=== PATIENT | female | born 1955 | race Caucasian/White ===

== ENCOUNTER 2023-08-03 10:00 | Day surgery (SDC) | payer OTHER ==
--- NOTE | 2023-07-30 08:24 | RAD REPORT ---
EXAM DESCRIPTION: RAD - Chest Pa And Lat (2 Views) - 07/30/2023 8:18 am CLINICAL HISTORY: PRE OP LEFT HEART CATH Chest pain. COMPARISON: No comparisons TECHNIQUE: PA and lateral views of the chest were obtained. FINDINGS: The lungs are hyperexpanded compatible with COPD. The heart is upper limit of normal in si ze. No fracture or aggressive bony process. IMPRESSION: COPD without acute process identified. The USPSTF recommends annual screening for lung cancer with low-dose CT (LDCT) in adults aged 50 to 8 0 years who have a 20 pack-year smoking history and currently smoke or have quit within the past 15 y ears.
[2023-07-30 08:31] LABS: Absolute Lymphocytes (CBC) 1.2 K/uL (0.7-4.9); Basophils % 0.3 % (0-1.3); Eosinophils % 0.5 % (0-4.4); Hematocrit 43.5 % (36.0-45.0); Hemoglobin 14.9 g/dL (12.0-15.0); Lymphocytes % 19.1 % (15.3-44.8); MCV 92.9 fL (80-100); MPV 7.4 fL (7.6-11.3); Platelets 277 thou/uL (152-406); RBC Red Blood Cell Count 4.68 M/uL (3.86-4.86)
[2023-07-30 08:38] LABS: Anion Gap 7.1 mEq/L (5.0-15.0); Potassium 4.1 mEq/L (3.5-5.1)
[2023-07-30 08:39] LABS: Protime INR 1.02
[2023-08-03] MEDS: NA CHLORIDE 0.9% 500 ML ONE (10:15)
[2023-08-03] MEDS ORDERED: VERAPAMIL HCL 10 MG/4 ML VIAL IV ONE (12:45)
[2023-08-03] MEDS ORDERED: HEPA 1000U/500MLS 2,000 UNIT/1,000 ML BAG IV ONE (12:45)
[2023-08-03] MEDS ORDERED: LIDOCAINE 1% 20 ML MDV ONE (12:45)
[2023-08-03] MEDS ORDERED: HEPARIN 5000 UNIT/ML 1 ML VIAL ONE (12:46)
[2023-08-03] MEDS ORDERED: HEPARIN 10,000 UNIT/10 ML VIAL IV ONE (12:46)
[2023-08-03] MEDS ORDERED: MIDAZOLAM HCL 2 MG/2 ML INJ ONE (12:47)
[2023-08-03] MEDS ORDERED: FENTANYL CITR 100 MCG/2 ML ONE (12:47)
--- NOTE | 2023-08-03 14:09 | OP ---
Date of Procedure: 08/03/2023 Surgeon: DIANA GARAY Procedure Performed: Selective coronary angiogram with left heart catheterization. Indication: Chest pain, abnormal stress test. Access: Right radial artery 6-Sudanese, closed with TR band. Complications: None. Bleeding: Less than 50 mL. Anesthesia: Total sedation time was 45 minutes. Used fentanyl and Versed. Description Of Procedure: After risks, benefits, alternatives were explained, the patient agreed to procedure and signed informed consent. The patient was brought into the cardiac catheterization [facility], prepped and draped in the usual sterile fashion. Then, I accessed right radial artery using pediatric micropuncture kit, placed a 6-Sudanese Slender sheath and took 5-Sudanese [place] 4 catheter into aortic root, over J-wire, engaged left main and then right coronary artery, took standard views and then catheter was pushed over the wire into the LV, measured LVEDP. Pullback did not record any grad ient, then removed the catheter and the sheath, placed TR band with good hemostasis. Findings: 1.Left main is short and normal. 2.LAD: Mild luminal irregularities, but no significant stenosis. Normal diagonal branches. 3.Left circumflex: Proximal 20% with myocardial bridge. OM branch is normal. Rest of the left cir cumflex is normal. 4.RCA: It is dominant circulation with proximal 20% stenosis. Rest of RCA is normal. 5.LVEDP is borderline between 10-12 mmHg. Conclusion: 1.Mild nonobstructive coronary artery disease. 2.Borderline elevated LVEDP. Recommendation: Medical management. SR/MODL Voice ID: [id number] Report ID: [id number]
[2023-08-03] MEDS: NA CHLORIDE 0.9% 0 ML ONE (15:45)
[2023-08-03 17:39] VITALS: BP 107/68; TEMP 96; O2SAT 96
== END 2023-08-03 15:55 | disposition home or self-care (01) ==
LOC: CCL 10:00
PROVIDERS: ATTEND Internal Medicine Interventional Cardiology
DX: I25.10 Atherosclerotic heart disease of native coronary artery without angina pectoris (principal); Q24.5 Malformation of coronary vessels; I73.9 Peripheral vascular disease, unspecified; I10 Essential (primary) hypertension; E78.5 Hyperlipidemia, unspecified; E11.9 Type 2 diabetes mellitus without complications; Z87.891 Personal history of nicotine dependence; Z79.84 Long term (current) use of oral hypoglycemic drugs; Z79.899 Other long term (current) drug therapy; Z88.1 Allergy status to other antibiotic agents; Z88.5 Allergy status to narcotic agent; Z82.49 Family history of ischemic heart disease and other diseases of the circulatory system
CPT/HCPCS: 93005; 85025; 80048; 36415; 85610; 82947; 85730; 71046; 93458; 76937; C1893; Q9966; J1644; J2001; J2250; J3010; J7040; 99152; 99153; J7030

== ENCOUNTER → 2023-08-03 | Emergency (ER) | payer OTHER ==
--- OUTSIDE RECORDS SUMMARY | 2023-08-03 16:16 | XMS REPORT | Continuity of Care Document ---
Author Name Unknown Address [address] [facility] [address] [place] [address] [facility] thconnect Address [address] [facility]. [address] [place] [address] Care Team Providers Care Review Coordinator Name Role Phone Pcp, Patient Does Not Have A Primary Care Physic timothy Pedro Mac Attending Clinician Unavailable [email or web address] Attending Clinician Roseanne Cid MD Attending Clinician + [phone] ROSEANNE OKEEFE Attending Clinician Andrew voss Doctor Unassigned, Mazie Attending Clinician Amber Garber MD Attending Clinician [phone] AMBER IRVING Attending Clinician Unavail able [email or web address]_S Admitting Clinician ROSEANNE Cid Admitting Clinician Roseanne Alvarado MD Admitting Clinician + [phone] Payers Payer Name Policy Type Policy Number Effective Date Expirati on Date Source [place]IC[place]: MePlease [id number] 2022 00:00:00 AETELLE (MEDICARE SUPPLEMENT) [id number] STANDARD LIFE & ACCIDENT C1 [id number] [facility] C1 [id number] 2020 00:00:00 [facility] COMMERCIAL NON-CONTRACT GENERIC [id number] 2017 00:00:00 Problems Condition Name Condition Details Condition Category Status Onset Date Resolution Date Last Treatment Date Treating Clinician Comments Source Hyperlipid emia Hyperlipid emia Disease Active 2014-05 00:00: 00 [facility] History of cigarette smoking History of cigarette smoking Disease Active 2014-05 00:00: 00 [facility] [id number] Diverticul osis of large intestine without hemorrhage Problem Active [facility] Mixed hyperlipid emia Hyperlipid emia, mixed Problem Active [facility] Type II diabetes mellitus well controlled Diabetes type 2, controlled Problem Active [facility] [id number] Peripheral polyneurop athy Problem Active [facility] [id number] Type 2 diabetes mellitus with other diabetic kidney complicati on Problem Active [facility] Ex-smoker Former smoker Problem Active [facility] Fatty liver Fatty liver Problem Active [facility] Essential hypertensi on Benign essential HTN Problem Active [facility] Allergic rhinitis Allergic rhinitis Problem Active [facility] Allergies, Adverse Reactions, Alerts Allergy Name Allergy Type Status Severity Reaction(s) Onset Date Inactive Date Treating Clinician Comments Source Ciproflo xacin Propensi ty to adverse reaction s Active Diarrhea 2011-05 00:00: 00 [facility] CIPROFLO XACIN DRUG INGREDI Active Diarrhea 2011-05 00:00: 00 [facility] MORPHINE DRUG INGREDI Active Anxiety 2011-05 00:00: 00 [facility] Morphine Propensi ty to adverse reaction s Active Anxiety 2011-0514 00:00: 00 [facility] morphine morphine Active Unknown [facility] 9041 Drug allergy Active Unknown [facility] Social History Social Habit Start Date Stop Date Quantity Comments Source Sex Assigned At [facility] Exposure to SARS-CoV-2 (event) 2022-08-17 00:00:00 2022-08-27 14:04:00 Not sure [facility] Tobacco use and exposure 2022-08-27 00:00:00 2022-08-27 00:00:00 Smokeless tobacco non-user [facility] Alcohol intake 2022-08-27 00:00:00 2022-08-27 00:00:00 0 /d [facility] Tobacco Comment 2022-08-27 00:00:00 2022-08-27 00:00:00 Patient smoking 8 years ago [facility] Cigarettes smoked current (pack per day) - Reported 2022-08-27 00:00:00 2022-08-27 00:00:00 [facility] Cigarette pack-years 2022-08-27 00:00:00 2022-08-27 00:00:00 [facility] History of tobacco use 2014-09-13 00:00:00 Cigarette Smoker [facility] Smoking Status Start Date Stop Date Source Former Smoker 2022-01-29 00:00:00 2022-01-29 00:00:00 [facility] Medications Ordered Medication Name Filled Medication Name Start Date Stop Date Current Medication? Ordering Clinician Indication Dosage Frequency Signature (SIG) Comments Components Source water for irrigation irrigation solution 09-02 18:23: 00 09-02 19:17 :01 No PRN, Starting on Wed09/02/22 at 1323, Until Wed09/02/22 at 1417, Routine, Intra-op [facility] simethicone (GAS RELIEF (SIMETHICON E)) 40 mg/0.6 mL drops 09-02 18:22: 00 09-02 19:17 :01 No PRN, Starting on Wed09/02/22 at 1322, Until Wed09/02/22 at 1417, Routine, Intra-op [facility] lactated ringers IV infusion 1,000 mL 09-02 17:45: 00 09-02 17:45 :00 No 1000mL at 42 mL/hr, 1,000 mL, IV Infusion, ONCE, 1 dose, On Wed09/02/22 at 1245, Routine, DSU Pre-op [facility] lactated ringers IV infusion 1,000 mL 09-02 17:45: 00 09-02 17:45 :00 No 1000mL at 42 mL/hr, 1,000 mL, IV Infusion, ONCE, 1 dose, On Wed09/02/22 at 1245, Routine, DSU Pre-op [facility] semaglutide 3 mg Tab 09-02 14:37: 39 Yes 1{tbl} Take 1 tablet by mouth in the morning. [facility] calcium carbonate (CALCIUM 600 ORAL) 09-02 14:37: 39 Yes 1200mg Take 1,200 mg by mouth in the morning. [facility] multivit-mi n/iron/foli c/lutein (CENTRUM SILVER WOMEN ORAL) 09-02 14:37: 39 Yes 1{tbl} Take [address] [facility] vitamin E mixed 400 unit Cap 09-02 14:37: 39 Yes 800mg Take 800 mg by mouth in the morning. [facility] cholecalcif mario, vitamin D3, (VITAMIN D3) 25 mcg (1,000 unit) tablet 09-02 14:37: 39 Yes 1000U Take 1 tablet by mouth in the morning. [facility] lisinopriL- hydrochloro thiazide 20-25 mg per tablet 09-02 14:37: 39 Yes 1{tbl} Take 1 tablet by mouth in the morning. [facility] pravastatin (PRAVACHOL) 40 mg tablet 09-02 14:37: 39 Yes 40mg Take 1 tablet by mouth at bedtime. [facility] lisinopril (PRINIVIL,Z ESTRIL) 20 mg tablet 09-02 14:37: 39 Yes 20mg Take 1 tablet by mouth in the morning. [facility] amLODIPine (NORVASC) 5 mg tablet 09-02 14:37: 39 Yes 5mg Take 1 tablet by mouth in the morning. [facility] metFORMIN 500 mg tablet 09-02 14:37: 39 Yes Take by mouth at bedtime. [facility] semaglutide 3 mg Tab 09-02 14:37: 39 Yes 1{tbl} Take 1 tablet by mouth in the morning. [facility] calcium carbonate (CALCIUM 600 ORAL) 09-02 14:37: 39 Yes 1200mg Take 1,200 mg by mouth in the morning. [facility] multivit-mi n/iron/foli c/lutein (CENTRUM SILVER WOMEN ORAL) 09-02 14:37: 39 Yes 1{tbl} Take [address] [facility] vitamin E mixed 400 unit Cap 09-02 14:37: 39 Yes 800mg Take 800 mg by mouth in the morning. [facility] cholecalcif mario, vitamin D3, (VITAMIN D3) 25 mcg (1,000 unit) tablet 09-02 14:37: 39 Yes 1000U Take 1 tablet by mouth in the morning. [facility] lisinopriL- hydrochloro thiazide 20-25 mg per tablet 09-02 14:37: 39 Yes 1{tbl} Take 1 tablet by mouth in the morning. [facility] pravastatin (PRAVACHOL) 40 mg tablet 09-02 14:37: 39 Yes 40mg Take 1 tablet by mouth at bedtime. [facility] lisinopril (PRINIVIL,Z ESTRIL) 20 mg tablet 09-02 14:37: 39 Yes 20mg Take 1 tablet by mouth in the morning. [facility] amLODIPine (NORVASC) 5 mg tablet 09-02 14:37: 39 Yes 5mg Take 1 tablet by mouth in the morning. [facility] metFORMIN 500 mg tablet 09-02 14:37: 39 Yes Take by mouth at bedtime. [facility] semaglutide 3 mg Tab 09-02 14:37: 39 Yes 1{tbl} Take 1 tablet by mouth in the morning. [facility] calcium carbonate (CALCIUM 600 ORAL) 09-02 14:37: 39 Yes 1200mg Take 1,200 mg by mouth in the morning. [facility] multivit-mi n/iron/foli c/lutein (CENTRUM SILVER WOMEN ORAL) 09-02 14:37: 39 Yes 1{tbl} Take [address] [facility] vitamin E mixed 400 unit Cap 09-02 14:37: 39 Yes 800mg Take 800 mg by mouth in the morning. [facility] cholecalcif mario, vitamin D3, (VITAMIN D3) 25 mcg (1,000 unit) tablet 09-02 14:37: 39 Yes 1000U Take 1 tablet by mouth in the morning. [facility] lisinopriL- hydrochloro thiazide 20-25 mg per tablet 09-02 14:37: 39 Yes 1{tbl} Take 1 tablet by mouth in the morning. [facility] pravastatin (PRAVACHOL) 40 mg tablet 09-02 14:37: 39 Yes 40mg Take 1 tablet by mouth at bedtime. [facility] lisinopril (PRINIVIL,Z ESTRIL) 20 mg tablet 09-02 14:37: 39 Yes 20mg Take 1 tablet by mouth in the morning. [facility] amLODIPine (NORVASC) 5 mg tablet 09-02 14:37: 39 Yes 5mg Take 1 tablet by mouth in the morning. [facility] metFORMIN 500 mg tablet 09-02 14:37: 39 Yes Take by mouth at bedtime. [facility] Kenalog (Triamcinol one) Kenalog (Triamcinol one) 07-01 00:00: 00 No 40mg [facility] Kenalog (Triamcinol one) Kenalog (Triamcinol one) 07-01 00:00: 00 No 40mg [facility] Kenalog (Triamcinol one) Kenalog (Triamcinol one) 07-01 00:00: 00 No 40mg [facility] pravastatin (PRAVACHOL) 40 mg tablet 2015-05 19:15: 43 Yes 40mg Take 40 mg by mouth at bedtime. [facility] lisinopril (PRINIVIL,Z ESTRIL) 20 mg tablet 2015-05 19:15: 43 Yes 20mg Take 20 mg by mouth daily. [facility] amLODIPine (NORVASC) 5 mg tablet 2015-05 19:15: 43 Yes 5mg Take 5 mg by mouth daily. [facility] pravastatin (PRAVACHOL) 40 mg tablet 2015-05 19:15: 43 Yes 40mg Take 40 mg by mouth at bedtime. [facility] lisinopril (PRINIVIL,Z ESTRIL) 20 mg tablet 2015-05 19:15: 43 Yes 20mg Take 20 mg by mouth daily. [facility] amLODIPine (NORVASC) 5 mg tablet 2015-05 19:15: 43 Yes 5mg Take 5 mg by mouth daily. [facility] ALPRAZolam (XANAX) 0.25 mg tablet 2015-05 00:00: [address] [facility] ALPRAZolam (XANAX) 0.25 mg tablet 2015-05 00:00: [address] [facility] ALPRAZolam (XANAX) 0.25 mg tablet 2015-05 00:00: [address] [facility] ALPRAZolam (XANAX) 0.25 mg tablet 2015-05 00:00: [address] [facility] ALPRAZolam (XANAX) 0.25 mg tablet 2016-1 0-05 00:00: 00 Yes [facility] estradiol (VIVELLE-DO T) 0.0375 mg/24 hr patch 06-18 00:00: 00 Yes [facility] estradiol (VIVELLE-DO T) 0.0375 mg/24 hr patch 06-18 00:00: 00 Yes [facility] estradiol (VIVELLE-DO T) 0.0375 mg/24 hr patch 06-18 00:00: 00 Yes [facility] estradiol (VIVELLE-DO T) 0.0375 mg/24 hr patch 06-18 00:00: 00 Yes [facility] estradiol (VIVELLE-DO T) 0.0375 mg/24 hr patch 06-18 00:00: 00 Yes [facility] fluticasone 50 mcg/actuati on nasal spray 2014-05 00:00: 00 Yes [id number] 2{spray } Use 2 Sprays in each nostril daily. [facility] fluticasone 50 mcg/actuati on nasal spray 2014-05 00:00: 00 Yes [id number] 2{spray } Use 2 Sprays in each nostril daily. [facility] fluticasone 50 mcg/actuati on nasal spray 2014-05 00:00: 00 Yes [id number] 2{spray } Use 2 Sprays in each nostril daily. [facility] fluticasone 50 mcg/actuati on nasal spray 2014-05 00:00: 00 Yes [id number] 2{spray } Use 2 Sprays in each nostril daily. [facility] fluticasone 50 mcg/actuati on nasal spray 2014-05 00:00: 00 Yes [id number] 2{spray } Use 2 Sprays in each nostril daily. [facility] (CL[facility]ARA[facility] 0.0375 mg/24 hr patch 09-24 00:00: 00 Yes [facility] estradiol (CLIMARA) 0.0375 mg/24 hr patch 09-24 00:00: 00 Yes [facility] estradiol (CLIMARA) 0.0375 mg/24 hr patch 09-24 00:00: 00 Yes [facility] estradiol (CLIMARA) 0.0375 mg/24 hr patch 09-24 00:00: 00 Yes [facility] estradiol (CLIMARA) 0.0375 mg/24 hr patch 09-24 00:00: 00 [facility]o thiazide (ESIDRIX) 25 mg tablet 09-23 00:00: 00 Yes [facility] hydrochloro thiazide (ESIDRIX) 25 mg tablet 09-23 00:00: 00 Yes [facility] hydrochloro thiazide (ESIDRIX) 25 mg tablet 09-23 00:00: 00 Yes [facility] hydrochloro thiazide (ESIDRIX) 25 mg tablet 09-23 00:00: 00 Yes [facility] hydrochloro thiazide (ESIDRIX) 25 mg tablet 09-23 00:00: 00 Yes [facility] [place] 3 [place] 3 Yes Pedro Mac 1 capsule [facility] Norvasc Norvasc Yes Pedro Mac 1 tablet [facility] Pravastatin Sodium Pravastatin Sodium Yes Pedro Mac 1 tablet [facility] Cinnamon Cinnamon Yes Pedro Mac not defined [facility] Hair Skin Nails Hair Skin Nails Yes Pedro Mac not defined [facility] Flonase Flonase Yes Pedro Amc 1 spray in each nostril [facility] Vitamin E Vitamin E Yes Pedro Mac 1 capsule [facility] Zyrtec Allergy Zyrtec Allergy Yes Pedro Mac 1 tablet [facility] Zestoretic Zestoretic Yes Pedro Mac 1 tablet [facility] Cinnamon 500 MG Cinnamon 500 MG No Cinnamon 500 MG Tumersaid Tumersaid No Tumersaid Flonase 50 MCG/ACT Flonase 50 MCG/ACT No 1{spray _in_eac h_nostr il} QD Flonase 50 MCG/ACT Tumersaid Tumersaid No Tumersaid Vitamin B12 Vitamin B12 No Vi tamin B12 Probiotic Probiotic No Probiotic Flonase 50 MCG/ACT Flonase 50 MCG/ACT No 1{spray _in_eac h_nostr il} QD Flonase 50 MCG/ACT Pravastatin Sodium 40 MG Pravastatin Sodium 40 MG No 1{table t} QD Pravastati n Sodium 40 MG ZyrTEC Allergy 10 MG ZyrTEC Allergy 10 MG No 1{table t} QD ZyrTEC Allergy 10 MG Zestoretic 20-25 MG Zestoretic 20-25 MG No 1{table t} QD Zestoretic 20-25 MG Zinc Zinc No Zinc Vitamin D3 Vitamin D3 No Vitamin D3 Estradiol 0.1 MG/GM Estradiol 0.1 MG/GM No Estradiol 0.1 MG/GM [place] 3 1000 MG [place] 3 1000 MG No 1{capsu le} QD [place] 3 1000 MG Hair Skin Nails - Hair Skin Nails - No Hair Skin Nails - Cinnamon 500 MG Cinnamon 500 MG No Cinnamon 500 MG Norvasc 5 MG Norvasc 5 MG No 1{table t} QD Norvasc 5 MG Vitamin E 400 UNIT Vitamin E 400 UNIT No 1{capsu le} QD Vitamin E 400 UNIT Centrum Centrum No Centrum Zestoretic 20-25 MG Zestoretic 20-25 MG No 1{table t} QD Zestoretic 20-25 MG Estradiol 0.1 MG/GM Estradiol 0.1 MG/GM No Estradiol 0.1 MG/GM Betamethaso ne Dipropionat e 0.05 % Betamethaso ne Dipropionat e 0.05 % No 1{appli cation} QD Betamethas one Dipropiona te 0.05 % Calcipotrie ne 0.005 % Calcipotrie ne 0.005 % No 1{appli cation} BID Calcipotri dony 0.005 % Vitamin D3 Vitamin D3 No Vitamin D3 Hair Skin Nails - Hair Skin Nails - No Hair Skin Nails - Tumersaid Tumersaid No Tumersaid Norvasc 5 MG Norvasc 5 MG No 1{table t} QD Norvasc 5 MG [place] 3 1000 MG [place] 3 1000 MG No 1{capsu le} QD [place] 3 1000 MG Vitamin E 400 UNIT Vitamin E 400 UNIT No 1{capsu le} QD Vitamin E 400 UNIT Probiotic Probiotic No Probiotic Centrum Centrum No Centrum Norvasc 5 MG Norvasc 5 MG No 1{table t} QD Norvasc 5 MG Pravastatin Sodium 40 MG Pravastatin Sodium 40 MG No Pravastati n Sodium 40 MG Vitamin B12 Vitamin B12 No Vi tamin B12 Zinc Zinc No Zinc Pravastatin Sodium 40 MG Pravastatin Sodium 40 MG No 1{table t} QD Pravastati n Sodium 40 MG Hydrocortis one 2.5 % Hydrocortis one 2.5 % No 1{appli cation} QD Hydrocorti sone 2.5 % Flonase 50 MCG/ACT Flonase 50 MCG/ACT No 1{spray _in_eac h_nostr il} QD Flonase 50 MCG/ACT Zestoretic 20-25 MG Zestoretic 20-25 MG No 1{table t} QD Zestoretic 20-25 MG Cinnamon 500 MG Cinnamon 500 MG No Cinnamon 500 MG ZyrTEC Allergy 10 MG ZyrTEC Allergy 10 MG No 1{table t} QD ZyrTEC Allergy 10 MG Zestoretic 20-25 MG Zestoretic 20-25 MG No 1{table t} QD Zestoretic 20-25 MG Estradiol 0.1 MG/GM Estradiol 0.1 MG/GM No Estradiol 0.1 MG/GM Betamethaso ne Dipropionat e 0.05 % Betamethaso ne Dipropionat e 0.05 % No 1{appli cation} QD Betamethas one Dipropiona te 0.05 % Calcipotrie ne 0.005 % Calcipotrie ne 0.005 % No 1{appli cation} BID Calcipotri dony 0.005 % Vitamin D3 Vitamin D3 No Vitamin D3 Hair Skin Nails - Hair Skin Nails - No Hair Skin Nails - Tumersaid Tumersaid No Tumersaid Norvasc 5 MG Norvasc 5 MG No 1{table t} QD Norvasc 5 MG [place] 3 1000 MG [place] 3 1000 MG No 1{capsu le} QD [place] 3 1000 MG Vitamin E 400 UNIT Vitamin E 400 UNIT No 1{capsu le} QD Vitamin E 400 UNIT Probiotic Probiotic No Probiotic Centrum Centrum No Centrum Norvasc 5 MG Norvasc 5 MG No 1{table t} QD Norvasc 5 MG Pravastatin Sodium 40 MG Pravastatin Sodium 40 MG No Pravastati n Sodium 40 MG Vitamin B12 Vitamin B12 No Vi tamin B12 Zinc Zinc No Zinc Pravastatin Sodium 40 MG Pravastatin Sodium 40 MG No 1{table t} QD Pravastati n Sodium 40 MG Hydrocortis one 2.5 % Hydrocortis one 2.5 % No 1{appli cation} QD Hydrocorti sone 2.5 % Flonase 50 MCG/ACT Flonase 50 MCG/ACT No 1{spray _in_eac h_nostr il} QD Flonase 50 MCG/ACT Zestoretic 20-25 MG Zestoretic 20-25 MG No 1{table t} QD Zestoretic 20-25 MG Cinnamon 500 MG Cinnamon 500 MG No Cinnamon 500 MG ZyrTEC Allergy 10 MG ZyrTEC Allergy 10 MG No 1{table t} QD ZyrTEC Allergy 10 MG ZyrTEC Allergy 10 MG ZyrTEC Allergy 10 MG No 1{table t} QD ZyrTEC Allergy 10 MG Centrum Centrum No Centrum Vitamin D3 Vitamin D3 No Vitamin D3 Zinc Zinc No Zinc Hair Skin Nails - Hair Skin Nails - No Hair Skin Nails - [place] 3 1000 MG [place] 3 1000 MG No 1{capsu le} QD [place] 3 1000 MG Pravastatin Sodium 40 MG Pravastatin Sodium 40 MG No 1{table t} QD Pravastati n Sodium 40 MG Vitamin E 400 UNIT Vitamin E 400 UNIT No 1{capsu le} QD Vitamin E 400 UNIT Vitamin B12 Vitamin B12 No Vi tamin B12 Norvasc 5 MG Norvasc 5 MG No 1{table t} QD Norvasc 5 MG Probiotic Probiotic No Probiotic Zestoretic 20-25 MG Zestoretic 20-25 MG No 1{table t} QD Zestoretic 20-25 MG Cinnamon 500 MG Cinnamon 500 MG No Cinnamon 500 MG Tumersaid Tumersaid No Tumersaid Flonase 50 MCG/ACT Flonase 50 MCG/ACT No 1{spray _in_eac h_nostr il} QD Flonase 50 MCG/ACT ZyrTEC Allergy 10 MG ZyrTEC Allergy 10 MG No 1{table t} QD ZyrTEC Allergy 10 MG Centrum Centrum No Centrum Vitamin D3 Vitamin D3 No Vitamin D3 Zinc Zinc No Zinc Hair Skin Nails - Hair Skin Nails - No Hair Skin Nails - [place] 3 1000 MG [place] 3 1000 MG No 1{capsu le} QD [place] 3 1000 MG Pravastatin Sodium 40 MG Pravastatin Sodium 40 MG No 1{table t} QD Pravastati n Sodium 40 MG Vitamin E 400 UNIT Vitamin E 400 UNIT No 1{capsu le} QD Vitamin E 400 UNIT Vitamin B12 Vitamin B12 No Vi tamin B12 Norvasc 5 MG Norvasc 5 MG No 1{table t} QD Norvasc 5 MG Probiotic Probiotic No Probiotic Zestoretic 20-25 MG Zestoretic 20-25 MG No 1{table t} QD Zestoretic 20-25 MG Immunizations Ordered Immunization Name Filled Immunization Name Date Status Comments Source Flucelvax - single dose syringe Flucelvax - single dose syringe 2022-02-03 08:25:00 Completed [facility] Moderna COVID-19 Vaccine (Low Dose Booster) Moderna COVID-19 Vaccine (Low Dose Booster) 2021-06-25 10:47:00 Completed [facility] Moderna COVID-19 Vaccine (Low Dose Booster) Moderna COVID-19 Vaccine (Low Dose Booster) 2021-06-25 10:47:00 Completed [facility] Moderna COVID-19 Vaccine (Low Dose Booster) Moderna COVID-19 Vaccine (Low Dose Booster) 2021-06-25 10:47:00 Completed [facility] Afluria Afluria 2021-02-20 11:09:00 Completed [facility] Afluria Afluria 2021-02-20 11:09:00 Completed [facility] Afluria Afluria 2021-02-20 11:09:00 Completed [facility] Afluria Afluria 2021-02-20 11:09:00 Completed [facility] Moderna COVID-19 Vaccine Moderna COVID-19 Vaccine 2021-01-03 08:26:00 Completed [facility] Moderna COVID-19 Vaccine Moderna COVID-19 Vaccine 2021-01-03 08:26:00 Completed [facility] Moderna COVID-19 Vaccine Moderna COVID-19 Vaccine 2021-01-03 08:26:00 Completed [facility] Moderna COVID-19 Vaccine Moderna COVID-19 Vaccine 2021-01-03 08:26:00 Completed [facility] Moderna COVID-19 Vaccine Moderna COVID-19 Vaccine 2020-12-06 09:46:00 Completed [facility] Moderna COVID-19 Vaccine Moderna COVID-19 Vaccine 2020-12-06 09:46:00 Completed [facility] Moderna COVID-19 Vaccine Moderna COVID-19 Vaccine 2020-12-06 09:46:00 Completed [facility] Moderna COVID-19 Vaccine Moderna COVID-19 Vaccine 2020-12-06 09:46:00 Completed [facility] Flublok Flublok 2020-01-31 12:23:00 Completed [facility] Flublok Flublok 2020-01-31 12:23:00 Completed [facility] Flublok Flublok 2020-01-31 12:23:00 Completed [facility] Flublok Flublok 2020-01-31 12:23:00 Completed [facility] Afluria Afluria 2019-01-24 13:59:00 Completed [facility] Afluria Afluria 2019-01-24 13:59:00 Completed [facility] Afluria Afluria 2019-01-24 13:59:00 Completed [facility] Afluria Afluria 2019-01-24 13:59:00 Completed [facility] Afluria Afluria 2019-01-24 00:00:00 Completed [facility] PNEUMAVAX 23 PNEUMAVAX 2018-07-22 08:49:00 Completed [facility] PNEUMAVAX 23 PNEUMAVAX 23 2018-07-22 08:49:00 Completed [facility] PNEUMAVAX 23 PNEUMAVAX 23 2018-07-22 08:49:00 Completed [facility] PNEUMAVAX 23 PNEUMAVAX 23 2018-07-22 08:49:00 Completed [facility] PNEUMAVAX 23 PNEUMAVAX 23 2018-07-22 00:00:00 Completed [facility] Kenalog (Triamcinolone) Kenalog (Triamcinolone) 2017-07-01 08:58:00 [facility] Moderna COVID-19 Vaccine (Low Dose Booster) Unknown Completed [facility] Moderna COVID-19 Vaccine Moderna COVID-19 Vaccine Unknown [facility] Vaccine Moderna COVID-19 Vaccine Unknown Completed [facility] Flublok Flublok Unknown Completed [facility] PNEUMAVAX 23 PNEUMAVAX 23 Unknown Completed [facility] Afluria Afluria Unknown Completed [facility] Afluria Afluria Unknown Completed [facility] Flucelvax - single dose syringe Flucelvax - single dose syringe Unknown Completed [facility] Vital Signs Vital Name Observation Time Observation Value Comments S ource Respiratory rate 2022-09-02 19:25:00 16 /min [facility] Oxygen saturation in Arterial blood by Pulse oximetry 2022-09-02 19:25:00 99 /min [facility] Systolic blood pressure 2022-09-02 19:20:00 142 mm[Hg] [facility] Diastolic blood pressure 2022-09-02 19:20:00 77 mm[Hg] [facility] Heart rate 2022-09-02 18:55:00 90 /min [facility] Body temperature 2022-09-02 18:55:00 36.39 Marcela [facility] Body height 2022-08-27 19:15:00 165.1 cm [facility] Body weight 2022-08-27 19:15:00 76.204 kg [facility] BMI 2022-08-27 19:15:00 27.96 kg/m2 [facility] Respiratory rate 2022-09-02 19:25:00 16 /min [facility] Oxygen saturation in Arterial blood by Pulse oximetry 2022-09-02 19:25:00 99 /min [facility] Systolic blood pressure 2022-09-02 19:20:00 142 mm[Hg] [facility] Diastolic blood pressure 2022-09-02 19:20:00 77 mm[Hg] [facility] Heart rate 2022-09-02 18:55:00 90 /min [facility] Body temperature 2022-09-02 18:55:00 36.39 Marcela [facility] Body height 2022-08-27 19:15:00 165.1 cm [facility] Body weight 2022-08-27 19:15:00 76.204 kg [facility] BMI 2022-08-27 19:15:00 27.96 kg/m2 [facility] height 2022-02-03 08:00:00 65 [in_i] Commo n [facility] weight 2022-02-03 08:00:00 165.0 [lb_av] Co mmon [facility] temperature 2022-02-03 08:00:00 98.2 [degF] Com mon [facility] bmi 2022-02-03 08:00:00 27.45 kg/m2 Comm on [facility] oximetry 2022-02-03 08:00:00 97 % Commo n [facility] respiratory rate 2022-02-03 08:00:00 18 /min Common [facility] blood pressure systolic 2022-02-03 08:00:00 132 mm[Hg] Common [facility] blood pressure diastolic 2022-02-03 08:00:00 70 mm[Hg] Common [facility] height 2021-08-01 08:40:00 65 [in_i] Commo n [facility] weight 2021-08-01 08:40:00 156.5 [lb_av] Co on [facility] temperature 2021-08-01 08:40:00 97.9 [degF] Com [facility] bmi 2021-08-01 08:40:00 26.04 kg/m2 Comm on [facility] oximetry 2021-08-01 08:40:00 99 % Commo n [facility] respiratory rate 2021-08-01 08:40:00 18 /min Common [facility] blood pressure systolic 2021-08-01 08:40:00 134 mm[Hg] Common [facility] blood pressure diastolic 2021-08-01 08:40:00 72 mm[Hg] Common [facility] height 2021-02-20 10:50:00 65 [in_i] Commo n [facility] weight 2021-02-20 10:50:00 165.3 [lb_av] Co on [facility] temperature 2021-02-20 10:50:00 97.9 [degF] Com [facility] bmi 2021-02-20 10:50:00 27.5 kg/m2 Commo n [facility] oximetry 2021-02-20 10:50:00 98 % Commo n [facility] respiratory rate 2021-02-20 10:50:00 18 /min Common [facility] blood pressure systolic 2021-02-20 10:50:00 138 mm[Hg] [facility] blood pressure diastolic 2021-02-20 10:50:00 78 mm[Hg] [facility] Procedures Procedure Date / Time Performed Performing Clinician Source COLONOSCOPY (ENDO) 2022-09-02 18:24:26 Harpreet Jeter [facility] COLONOSCOPY (ENDO) 2022-09-02 18:24:26 Harpreet Jeter [facility] COLONOSCOPY 2022-09-02 18:22:00 Roseanne Okeefe [facility] PATIENT QUESTIONNAIRE 2022-09-02 05:01:00 Doctor Unassigned, Mazie [facility] EXTERNAL PROVIDER RECORDS 2022-08-04 05:01:00 Doctor Unassigned, Mazie [facility] EXTERNAL PROVIDER RECORDS 2022-08-04 05:01:00 Doctor Unassigned, Mazie [facility] Encounters Start Date/Time End Date/Time Encounter Type Admission Type Attending [facility] Facility Care Department Encounter ID Source 2022-03-02 15:40:00 Outpatient Mac, Pedro [facility]ML[facility] ST[facility] [id number] [facility] 2022-02-03 08:03:00 Outpatient Mac, Pedro [facility]MLC [facility] [id number] [facility] 2021-12-02 12:40:00 Outpatient Mac, Pedro STLMLC ST[facility] [id number] [facility] 2021-07-30 08:26:00 Outpatient Mac, Pedro STLMLC ST[facility] [id number] [facility] 2021-07-07 09:41:01 Outpatient Mac, Pedro STLMLC ST[facility] [id number] [facility] 2021-06-26 14:34:00 Outpatient Mac, Pedro STLMLC ST[facility] [id number] [facility] 2021-06-18 14:13:57 Outpatient Mac, Pedro STLMLC ST[facility] [id number] [facility] 2021-06-18 13:54:41 Outpatient Mac, Pedro STLMLC ST[facility] [id number] [facility] 2021-06-18 13:26:55 Outpatient Mac, Pedro STLMLC ST[facility] [id number] [facility] 2021-06-18 13:09:45 [facility] [id number] [facility] 2021-06-18 12:41:05 [facility] [id number] [facility] 2021-06-18 12:15:14 [facility] [id number] [facility] 2021-06-18 12:13:22 [facility] [id number] [facility] 2021-06-18 12:06:48 [facility] [id number] [facility] 2023-04-26 00:00:00 2023-04-26 00:00:00 Outpatient GC_GCBZW_Ka diyala_S PRIV PRIV [id number] [facility] 2023-03-16 00:00:00 2023-03-16 00:00:00 Outpatient GC_GCBZW_Ka diyala_S PRIV PRIV [id number] [facility] 2023-03-16 00:00:00 2023-03-16 00:00:00 Outpatient GC_GCBZW_Ka diyala_S PRIV PRIV [id number] [facility] 2022-09-02 14:05:00 2022-09-02 14:44:00 Surgery Roseanne Newberry [facility] [id number] [facility] 2022-09-02 12:31:00 2022-09-02 14:25:00 Outpatient ROSEANNE HATCH [facility] [id number] 2022-09-02 12:31:00 2022-09-02 14:25:00 Hospital Encounter Roseanne Newberry [facility] [id number] [facility] 2022-09-02 00:00:00 2022-09-02 00:00:00 Orders Only Doctor Unassigned, Mazie [facility] [id number] [facility] 2022-07-21 00:00:00 2022-07-21 00:00:00 (TEL) STLMLC STLMLC [id number] [facility] 2022-02-03 00:00:00 2022-02-03 00:00:00 (WELLNESS) Wellness Visit STLMLC STLMLC [id number] [facility] 2021-08-01 00:00:00 2021-08-01 00:00:00 OFFICE VISIT EST PT LEVEL 3 [facility] ST[facility]C [id number] [facility] 2021-06-25 00:00:00 2021-06-25 00:00:00 (COVID Inj) COVID Injection STLMLC STLMLC [id number] [facility] 2021-02-20 00:00:00 2021-02-20 00:00:00 OFFICE VISIT ESTAB PT LEVEL 4 [facility] STL[facility]C [id number] [facility] 2021-01-03 00:00:00 2021-01-03 00:00:00 Outpatient STLMLC ST[facility] [id number] [facility] 2020-12-06 00:00:00 2020-12-06 00:00:00 Outpatient STLMLC ST[facility]C [id number] [facility] 2020-11-22 00:00:00 2020-11-22 00:00:00 Outpatient STLMLC ST[facility]C [id number] [facility] 2020-08-14 00:00:00 2020-08-14 00:00:00 Outpatient STLMLC ST[facility]C [id number] [facility] 2020-05-14 00:00:00 2020-05-14 00:00:00 Outpatient STLMLC ST[facility]MLC [id number] [facility] 2020-03-25 07:54:32 2020-03-25 08:52:15 Office Visit Amber Irving [facility] [id number] 2020-03-25 07:54:32 2020-03-25 08:52:15 Office Visit Amber Irving [facility] [id number] [facility] 2020-03-25 08:30:00 2020-03-25 08:30:00 Outpatient AMBER DOE [facility] [id number] [facility] 2019-10-17 15:17:00 2019-10-17 15:17:00 [place] [facility] [id number] [facility] 2019-10-02 14:10:00 2019-10-02 14:10:00 Outpatient AM[facility]E [facility] [id number] [facility] 2019-01-24 13:30:00 2019-01-24 13:30:00 Out[place] [facility] [id number] [facility] 2018-09-27 09:49:00 2018-09-27 09:49:00 Out[facility] [id number] [facility] 2018-07-22 08:45:00 2018-07-22 08:45:00 [facility] [id number] [facility] 2018-01-06 09:30:00 2018-01-06 09:30:00 Outpatient [facility] [id number] [facility] 2017-10-06 09:15:00 2017-10-06 09:15:00 Outpatient [facility] [id number] [facility]
[2023-08-03 18:00] LABS: Absolute Eosinophils 0.1 K/uL (0-0.5); Absolute Lymphocytes (CBC) 1.5 K/uL (0.7-4.9); Basophils % 0.3 % (0-1.3); Eosinophils % 0.7 % (0-4.4); Hematocrit 42.5 % (36.0-45.0); Hemoglobin 14.7 g/dL (12.0-15.0); Lymphocytes % 16.7 % (15.3-44.8); MCV 93.2 fL (80-100); MPV 7.4 fL (7.6-11.3); Platelets 264 thou/uL (152-406); RBC Red Blood Cell Count 4.56 M/uL (3.86-4.86)
[2023-08-03 18:10] LABS: Albumin 4.1 g/dL (3.4-5.0); Albumin/Globulin Ratio 1.1 (1.1-1.8); Anion Gap 9.5 mEq/L (5.0-15.0); Bilirubin Total 0.4 mg/dL (0.2-1.0); Globulin 3.6 g/dL (2.3-3.5); Potassium 3.5 mEq/L (3.5-5.1); Protein, Total 7.7 g/dL (6.4-8.2)
--- NOTE | 2023-08-03 18:41 | ER ---
Nurse's Notes [facility] Name: Isis Ruiz Age: 68 yrs Sex: Female : 1955 Arrival Date: 08/03/2023 Time: 16:12 Bed 7 Private MD: Diagnosis: Vasovagal syncope Presentation: 08/02 16:29 Chief complaint: Patient states: Post heart cath today - pt was getting dressed to go ld1 home and stated "I feel like I am going to throw up" then patient had syncopal episode and became diaphoretic. Sent to ER from post op. Coronavirus screen: At this time, the client does not indicate any symptoms associated with coronavirus-19. Ebola Screen: No symptoms or risks identified at this time. Initial Sepsis Screen: Does the patient meet any 2 criteria? No. Patient's initial sepsis screen is negative. Does the patient have a suspected source of infection? No. Patient's initial sepsis screen is negative. Risk Assessment: Do you want to hurt yourself or someone else? Patient reports no desire to harm self or others. Onset of symptoms was August 03, 2023. 16:29 Method Of Arrival: Ambulatory ld1 16:29 Acuity: ED 3 ld1 Triage Assessment: 16:30 General: Appears in no apparent distress. comfortable, Behavior is calm, cooperative, ld1 appropriate for age. Pain: Denies pain. EENT: No signs and/or symptoms were reported regarding the EENT system. Neuro: Level of Consciousness is awake, alert, obeys commands, Oriented to person, place, time, situation. Cardiovascular: Capillary refill < 3 seconds Patient's skin is warm and dry. Respiratory: Airway is patent Respiratory effort is even, unlabored. GI: Abdomen is round non-distended. : No signs and/or symptoms were reported regarding the genitourinary system. Derm: No signs and/or symptoms reported regarding the dermatologic system. Historical: - Allergies: 16:30 Morphine; ld1 16:30 Ciprofloxacin; ld1 - PMHx: 16:30 Diabetes mellitus; Hypertensive disorder; Hypercholesterolemia; ld1 - PSHx: 16:30 Heart cath; ld1 - Immunization history:: Adult Immunizations up to date. - Social history:: Smoking status: Patient denies any tobacco usage or history of. Patient/guardian denies using alcohol. - Family history:: not pertinent. Screenin:[birth year] [facility] ED Fall Risk Assessment (Adult) Score/Fall Risk Level 0 - 2 = Low Risk nj1 Oriented to surroundings, Maintained a safe environment, Hourly rounding (assess needs \\T\\ fall precautionary measures) done. 17:59 Abuse screen: Denies threats or abuse. Denies injuries from another. Nutritional nj1 screening: No deficits noted. Tuberculosis screening: No symptoms or risk factors identified. Assessment: 17:20 General: Appears in no apparent distress. comfortable, Behavior is calm, cooperative, nj1 appropriate for age. 17:20 Pain: Denies pain. Neuro: Level of Consciousness is awake, alert, obeys commands, nj1 Oriented to person, place, time, situation. Cardiovascular: Denies chest pain, shortness of breath, Patient's skin is warm and dry. Respiratory: Airway is patent Respiratory effort is even, unlabored. 18:51 Reassessment: Patient appears in no apparent distress at this time. Patient and/or db family updated on plan of care and expected duration. Pain level reassessed. Patient is alert, oriented x 3, equal unlabored respirations, skin warm/dry/pink. Patient states feeling better. Patient states symptoms have improved. General: Appears in no apparent distress. comfortable, Behavior is calm, cooperative. Vital Signs: 16:29 BP 154 / 83; Pulse 71; Resp 18; Temp 98.2(TE); Pulse Ox 100% on R/A; Weight 74.39 kg; ld1 Height 5 ft. 5 in. ; Pain 0/10; 17:30 BP 138 / 82; Pulse 73; Resp 16; Pulse Ox 98% ; Pain 0/10; nj1 18:00 BP 133 / 79; Pulse 72; Resp 16; Pulse Ox 99% on R/A; db 18:30 BP 140 / 81; Pulse 73; Resp 16; Pulse Ox 97% on R/A; db 16:29 Body Mass Index 27.29 (74.39 kg, 165.1 cm) ld1 16:29 Pain Scale: Adult ld1 17:30 Pain Scale: Adult nj1 ED Course: 16:15 Patient arrived in ED. rg4 16:20 Patient has correct armband on for positive identification. Bed in low position. Call nj1 light in reach. Adult w/ patient. Provided Education on: call light, fall precautions. 16:28 Henok Cole MD is Attending Physician. rt 16:30 Triage completed. ld1 16:30 Arm band placed on right wrist. ld1 17:20 IV is patent, is intact, with good blood return. nj1 17:35 Lucy Leon, RN is Primary Nurse. nj1 17:51 CMP Sent. nj1 17:51 CBC with Diff Sent. nj1 18:41 Moreno Vasquez MD is Referral Physician. rt 18:51 Client placed on continuous cardiac and pulse oximetry monitoring. NIBP monitoring db applied. Warm blanket given. 18:51 No provider procedures requiring assistance completed. IV discontinued, intact, db bleeding controlled, No redness/swelling at site. Administered Medications: No medications were administered Medication: 18:51 VIS not applicable for this client. db Outcome: 18:41 Discharge ordered by MD. rt 18:51 Discharged to home ambulatory, with family, db 18:51 Condition: stable 18:51 Discharge instructions given to patient, Instructed on discharge instructions, follow up and referral plans. 18:52 Patient left the ED. db Signatures: Olivia Abraham rg4 Brie Tovar RN RN ld1 Radha Cm RN RN db Henok Cole MD MD rt Lucy Leon, RN RN nj1 Corrections: (The following items were deleted from the chart) 16:31 16:30 Allergies: No Known Allergies; ld1 ld1
--- NOTE | 2023-08-03 18:41 | EDPHYS ---
Physician Documentation [facility] Name: Isis Ruiz Age: 68 yrs Sex: Female : 1955 Arrival Date: 08/03/2023 Time: 16:12 Bed 7 Private MD: ED Physician Henok Cole HPI: 08/02 17:16 This 68 yrs old Female presents to ER via Ambulatory with complaints of Near Syncope. rt 17:16 Patient presents to the ED from PACU after having a heart catheterization. Per the rt patient, there is about 20% blockage in 1 artery, no stents were needed. Patient reportedly had an acute onset of dizziness with loss of consciousness with associated nausea and sweating. Patient had a brief loss of consciousness, had regain of consciousness and currently has no symptoms. Symptoms are moderate in severity, no other aggravating elevating factors.. Historical: - Allergies: 16:30 Morphine; ld1 16:30 Ciprofloxacin; ld1 - PMHx: 16:30 Diabetes mellitus; Hypertensive disorder; Hypercholesterolemia; ld1 - PSHx: 16:30 Heart cath; ld1 - Immunization history:: Adult Immunizations up to date. - Social history:: Smoking status: Patient denies any tobacco usage or history of. Patient/guardian denies using alcohol. - Family history:: not pertinent. ROS: 17:16 Constitutional: Negative for fever, chills, and weight loss, Cardiovascular: Negative rt for chest pain, palpitations, and edema, Respiratory: Negative for shortness of breath, cough, wheezing, and pleuritic chest pain, MS/Extremity: Negative for injury and deformity, Psych: Negative for depression, anxiety, suicide ideation, homicidal ideation, and hallucinations, 17:16 Abdomen/GI: Positive for nausea, Negative for vomiting, 17:16 Neuro: Positive for dizziness, loss of consciousness, Exam: 17:16 Constitutional: This is a well developed, well nourished patient who is awake, alert, rt and in no acute distress. Head/Face: Normocephalic, atraumatic. Chest/axilla: Normal chest wall appearance and motion. Nontender with no deformity. No lesions are appreciated. Cardiovascular: Regular rate and rhythm with a normal S1 and S2. No gallops, murmurs, or rubs. Normal PMI, no JVD. No pulse deficits. Respiratory: Lungs have equal breath sounds bilaterally, clear to auscultation and percussion. No rales, rhonchi or wheezes noted. No increased work of breathing, no retractions or nasal flaring. Abdomen/GI: Soft, non-tender, with normal bowel sounds. No distension or tympany. No guarding or rebound. No evidence of tenderness throughout. Skin: Warm, dry with normal turgor. Normal color with no rashes, no lesions, and no evidence of cellulitis. MS/ Extremity: Pulses equal, no cyanosis. Neurovascular intact. Full, normal range of motion. Neuro: Awake and alert, GCS 15, oriented to person, place, time, and situation. Cranial nerves II-XII grossly intact. Motor strength 5/5 in all extremities. Sensory grossly intact. Cerebellar exam normal. Normal gait. Psych: Awake, alert, with orientation to person, place and time. Behavior, mood, and affect are within normal limits. 17:51 ECG was reviewed by the Attending Physician. rt Vital Signs: 16:29 BP 154 / 83; Pulse 71; Resp 18; Temp 98.2(TE); Pulse Ox 100% on R/A; Weight 74.39 kg; ld1 Height 5 ft. 5 in. ; Pain 0/10; 17:30 BP 138 / 82; Pulse 73; Resp 16; Pulse Ox 98% ; Pain 0/10; nj1 18:00 BP 133 / 79; Pulse 72; Resp 16; Pulse Ox 99% on R/A; db 18:30 BP 140 / 81; Pulse 73; Resp 16; Pulse Ox 97% on R/A; db 16:29 Body Mass Index 27.29 (74.39 kg, 165.1 cm) ld1 16:29 Pain Scale: Adult ld1 17:30 Pain Scale: Adult nj1 MDM: 16:36 Patient medically screened. rt 19:28 Differential Diagnosis: Dysrhythmia, vasovagal event, electrolyte disturbance. Data rt reviewed: vital signs, nurses notes, lab test result(s), EKG. Consideration of Admission/Observation Escalation of care including admission/observation considered. 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 Test considered but Not performed: Labs: Patient with recent noncritical cardiac catheterization, expected elevated troponin given recent catheterization, patient has no signs or symptoms consistent with an acute coronary syndrome, do not believe the troponin is indicated at this time.. Care significantly affected by the following chronic conditions: Diabetes, Hypertension. Counseling: I had a detailed discussion with the patient and/or guardian regarding the historical points, exam findings, and any diagnostic results supporting the discharge/admit diagnosis, lab results, the need for outpatient follow up, to return to the emergency department if symptoms worsen or persist or if there are any questions or concerns that arise at home. Response to treatment: the patient's symptoms have resolved after treatment. 08/02 16:36 Order name: CBC with Diff; Complete Time: 18:23 rt 08/02 16:36 Order name: CMP; Complete Time: 18:23 rt 08/02 16:36 Order name: EKG; Complete Time: 17:11 rt 08/02 16:36 Order name: EKG - Nurse/Tech; Complete Time: 17:51 rt EC:51 Rate is 71 beats/min. Rhythm is regular, Normal Sinus Rhythm with No ectopy. QRS [place] rt is Normal. MO interval is normal. QRS interval is normal. QT interval is normal. No Q waves. No ST changes noted. Interpreted by me. Administered Medications: No medications were administered Disposition Summary: 08/03/23 18:41 Discharge Ordered Notes: Location: Home rt Problem: new rt Symptoms: are resolved rt Condition: Stable rt Diagnosis - Vasovagal syncope rt Followup: rt - With: Moreno Vasquez MD - When: 5 - 6 days - Reason: Discharge Instructions: - Discharge Summary Sheet rt - Syncope rt Forms: - Medication Reconciliation Form rt - Thank You Letter rt - Antibiotic Education rt - Prescription Opioid Use rt - Patient Portal Instructions rt - Leadership Thank You Letter rt Signatures: Dispatcher [employer] Brie Sargent RN RN ld1 Henok Cole MD MD rt Corrections: (The following items were deleted from the chart) 16:31 16:30 Allergies: No Known Allergies; ld1 ld1
[2023-08-03 19:16] VITALS: BP 140/81; TEMP 98.2; O2SAT 97
== END ==
LOC: ER 16:12
DX: R55 Syncope and collapse (principal); Z98.61 Coronary angioplasty status; I10 Essential (primary) hypertension; Z88.1 Allergy status to other antibiotic agents; Z88.5 Allergy status to narcotic agent
CPT/HCPCS: 36415; 80053; 85025